=== PATIENT | male | born 1945 | race Caucasian/White ===

== ENCOUNTER 2017-04-10 06:11 | Inpatient (IN) | payer BC ==
[2017-04-08 13:08] LABS: Basophils # (auto) 0 uL; Basophils % (auto) 0.4 % (0.0-2.0); CONDITION Y; Eosinophils # (auto) 0.1 uL; Eosinophils % (auto) 1.9 % (0.0-7.0); Hematocrit 44.6 % (41.0-53.0); Hemoglobin 15.2 g/dL (13.5-17.5); Lymphocytes % (auto) 30.6 % (10.0-50.0); Mean Corpuscular Hemoglobin 30.9 pg (28.0-32.0); Mean Corpuscular Hgb Conc. 34.1 g/dL (32.0-36.0); Mean Corpuscular Volume 90.5 fL (80.0-100.0); Mean Platelet Volume 7.9 fL (7.4-10.4); Monocytes # (auto) 0.4 uL; Monocytes % (auto) 5.8 % (0.0-12.0); Neutrophils # (auto) 4.1 uL; Neutrophils % (auto) 61.3 % (37.0-80.0); Platelet Count (auto) 233 10^3/uL (140-450); White Blood Cell 6.6 10^3/uL (4.4-10.8)
[2017-04-08 13:16] LABS: Urine Bilirubin Negative (Negative); Urine Blood TRACE /uL (Negative); Urine Color Yellow (Yellow); Urine Glucose TRACE mg/dL (Normal); Urine Ketone Negative (Negative); Urine Nitrite POSITIVE (Negative); Urine RBC 39 /hpf (0 - 3); Urine Urobilinogen Normal (Negative); Urine WBC Clumps PRESENT /hpf (None Seen)
[2017-04-08 13:27] LABS: INR 0.97 (0.9-1.15); Partial Thromboplastin Time 27.2 sec (22.64-33.71); Prothrombin Time 10.6 sec (9.37-12.3)
[2017-04-08 13:28] LABS: BUN/Creatinine Ratio 27.7; Calcium 9.3 mg/dL (8.5-10.1); Potassium 4.1 mmol/L (3.5-5.1)
[~2017-04-10] VITALS: Ht 177.8 cm; Wt 85.7 kg
[~2017-04-10 06:11] MED LIST: METF-370 PO
[2017-04-10] MEDS ORDERED: BUPIVACAINE 0.25% INJ 50ML VIAL ONE (06:37)
[2017-04-10] MEDS ORDERED: LIDOCAINE W/ EPINEPHRINE 1 % INJ 30ML ONE (06:37)
[2017-04-10] MEDS ORDERED: ceFOXitin 2GM/100ML D5W 100 ML IV ONE (07:10)
[2017-04-10] MEDS ORDERED: MIDAZOLAM HCL 1MG/1ML-2 ML VIAL ONE (07:31)
[2017-04-10] MEDS ORDERED: fentaNYL CITRATE 100 MCG/2 ML VL ONE ×4 (07:31→11:33)
[2017-04-10] MEDS ORDERED: PROPOFOL 10 MG/ML 20 ML IV ONE (07:34)
[2017-04-10] MEDS ORDERED: ROCURONIUM 10MG/ML 10ML VIAL IV ONE ×2 (07:34→10:47)
[2017-04-10] MEDS ORDERED: ePHEDrine SULFATE 50 MG/ML AMP ONE (08:27)
[2017-04-10] MEDS ORDERED: InsuLIN REG 1unit/0.01ml Soln (100units/ml) ONE (10:28)
[2017-04-10] MEDS ORDERED: ONDANSETRON HCL 4 MG/2 ML VIAL IV ONE (10:30)
[2017-04-10] MEDS ORDERED: ACCU-CHEK COMFORT CURVE STRIP VI ONE (10:30)
[2017-04-10] MEDS ORDERED: NALOXONE HCL 0.4 MG/ML VIAL IV PRN (10:30)
[2017-04-10] MEDS ORDERED: fentaNYL CITRATE 100 MCG/2 ML VL IV PRN (10:30)
[2017-04-10] MEDS: SOD CHL 0.45% 1,000 ML IV SCH ×3 (10:41→18:41)
[2017-04-10] MEDS ORDERED: diphenhdrAMINE HCL 50 MG/1 ML VL IV PRN (10:45)
[2017-04-10] MEDS ORDERED: DEXTROSE (50%) 50ML SYRG IV PRN (10:45)
[2017-04-10] MEDS ORDERED: ACETAMINOPHEN/CODEINE#3 (300/30mg) TAB PO PRN (10:45)
[2017-04-10] MEDS ORDERED: ONDANSETRON HCL 4 MG/2 ML VIAL IV PRN (10:45)
[2017-04-10] MEDS ORDERED: ONDANSETRON HCL 4 MG/2 ML VIAL ONE (11:11)
[2017-04-10] MEDS ORDERED: METOCLOPRAMIDE HCL 5MG/ml INJ 2ml VIAL ONE (11:11)
[2017-04-10] MEDS ORDERED: GLYCOPYRROLATE 0.2 MG/ML 1ML VIAL ONE (11:11)
[2017-04-10] MEDS ORDERED: diphenhdrAMINE HCL 50 MG/1 ML VL ONE (11:11)
[2017-04-10] MEDS ORDERED: NEOSTIGMINE 1 MG/ML INJ (10mg/10ML VIAL) ONE (11:11)
[2017-04-10] MEDS: InsuLIN REG 1unit/0.01ml Soln (100units/ml) SC SCH ×2 (11:30→17:39)
[2017-04-10] MEDS: HYDROmorphone HCL 2 MG/ML VL IV PRN ×6 (12:05→23:20)
[2017-04-10] MEDS: ACCU-CHEK COMFORT CURVE STRIP VI SCH ×3 (15:28→21:15)
[2017-04-10] MEDS: CEFOXITIN SODIUM 1 GM in D5W 5% 50 ML IV SCH ×2 (15:51→22:26)
[2017-04-10] MEDS: metFORMIN HYDROCHLORIDE 500 MG TAB PO SCH (15:54)
[2017-04-10 15:58] VITALS: BP 150/84
[2017-04-10] MEDS ORDERED: GLIP-116 PO (16:33)
[2017-04-10 16:48] VITALS: BP 150/84
[2017-04-10 22:00] VITALS: BP 144/76
[2017-04-10] MEDS ORDERED: InsuLIN REG 1unit/0.01ml Soln (100units/ml) SC SCH (22:00)
[2017-04-11] MEDS: SOD CHL 0.45% 1,000 ML IV SCH ×2 (02:41→10:35)
[2017-04-11] MEDS: HYDROmorphone HCL 2 MG/ML VL IV PRN ×4 (03:51→12:46)
[2017-04-11 05:00] VITALS: BP 129/68
[2017-04-11 05:54] LABS: BUN/Creatinine Ratio 18.4; Calcium 7.9 mg/dL (8.5-10.1); Potassium 4.3 mmol/L (3.5-5.1)
[2017-04-11] MEDS: ACCU-CHEK COMFORT CURVE STRIP VI SCH ×2 (06:10→11:47)
[2017-04-11] MEDS: CEFOXITIN SODIUM 1 GM in D5W 5% 50 ML IV SCH (06:10)
[2017-04-11] MEDS: InsuLIN REG 1unit/0.01ml Soln (100units/ml) SC SCH ×2 (06:17→11:48)
[2017-04-11 09:00] VITALS: BP_SYST 126; BP_SYST 158; BP_DIAS 100; BP_DIAS 68
[2017-04-11] MEDS: metFORMIN HYDROCHLORIDE 500 MG TAB PO SCH (10:20)
[2017-04-11 12:57] VITALS: BP 146/77
== END 2017-04-11 15:37 | disposition home or self-care (01) | DRG 708 ==
LOC: SUR 06:11 → WEST WING 06:12
PROVIDERS: ADMIT Urology; ATTEND Urology
PROC: 07TC4ZZ Resection of Pelvis Lymphatic, Percutaneous Endoscopic Approach (ICD-10-PCS; 2017-04-10)
PROC: 0TQC4ZZ Repair Bladder Neck, Percutaneous Endoscopic Approach (ICD-10-PCS; 2017-04-10)
PROC: 8E0W4CZ Robotic Assisted Procedure of Trunk Region, Percutaneous Endoscopic Approach (ICD-10-PCS; 2017-04-10)
PROC: 0VT04ZZ Resection of Prostate, Percutaneous Endoscopic Approach (ICD-10-PCS; principal; 2017-04-10 07:32)
DX: C61 Malignant neoplasm of prostate (principal); E11.9 Type 2 diabetes mellitus without complications; M17.12 Unilateral primary osteoarthritis, left knee; Z85.820 Personal history of malignant melanoma of skin; Z79.899 Other long term (current) drug therapy; Z87.891 Personal history of nicotine dependence; Z90.49 Acquired absence of other specified parts of digestive tract
CPT/HCPCS: 53899; S2900; 36415; 80048; 81001; 82962; 83036; 85025; 85610; 85730; 86850; 86900; 86901; 87086; 87088; 87186; J0694; J1815; J2250; J2405; J2704; J3490; J7060

== ENCOUNTER 2020-12-31 13:54 | Inpatient (IN) | payer BC ==
[~2020-12-31] VITALS: Ht 170.2 cm; Wt 78.4 kg
[~2020-12-31 13:54] MED LIST changes: +GLIP10TA9 PO
[2020-12-31 14:39] LABS: Basophils # (auto) 0 10 ^3/uL (0-0.2); Basophils % (auto) 0.5 % (0.0-2.0); Eosinophils # (auto) 0 10 ^3/uL (0-0.8); Eosinophils % (auto) 0.3 % (0.0-7.0); Hematocrit 31.8 % (41.0-53.0); Hemoglobin 10.5 g/dL (13.5-17.5); Lymphocytes # (auto) 0.7 10 ^3/uL (0.4-5.4); Lymphocytes % (auto) 9.7 % (10.0-50.0); Mean Corpuscular Hemoglobin 28.2 pg (28.0-32.0); Mean Corpuscular Hgb Conc. 32.9 g/dL (32.0-36.0); Mean Corpuscular Volume 85.8 fL (80.0-100.0); Monocytes # (auto) 0.7 10 ^3/uL (0-1.3); Monocytes % (auto) 9.6 % (0.0-12.0); Neutrophils # (auto) 5.6 10 ^3/uL (1.6-8.6); Neutrophils % (auto) 79.9 % (37.0-80.0); Nucleated Red Blood Cells % 0.1 %; Platelet Count (auto) 438 10^3/uL (140-450); Red Blood Cells 3.71 10^6/uL (4.5-5.90); Red Cell Distribution Width 16.9 % (11.8-14.3)
[2020-12-31 14:56] LABS: Albumin 2.3 g/dL (3.4-5.0); Calcium 9.1 mg/dL (8.5-10.1); Potassium 3.7 mmol/L (3.5-5.1)
[2020-12-31 15:01] LABS: Bilirubin, Total 0.5 mg/dL (0.2-1.0)
[2020-12-31] MEDS ORDERED: SODIUM CHLORIDE 0.9% 500 ML IVB ONE ×2 (16:00→17:00)
[2020-12-31] MEDS ORDERED: SODIUM CHLORIDE 0.9% 1,000 ML IV ONE ×2 (16:00→17:00)
[2020-12-31] MEDS ORDERED: MORPHINE SULF INJ 2 MG/ML SYRINGE 1ML IV PRN (20:45)
[2020-12-31] MEDS ORDERED: ONDANSETRON HCL 4 MG/2 ML VIAL IV PRN (20:45)
[2020-12-31] MEDS ORDERED: TEMAZEPAM 15 MG CAP PO PRN (20:45)
[2020-12-31] MEDS ORDERED: ALBUTEROL SULF 2.5 MG/0.5ML(0.5%) NEB SOLN NEB PRN (20:45)
[2020-12-31] MEDS ORDERED: NITROGLYCERIN 0.4 MG SL TAB SL PRN (20:45)
[2020-12-31] MEDS ORDERED: ACETAMINOPHEN 325 MG TAB PO PRN (20:45)
[2020-12-31] MEDS ORDERED: DEXTROSE (50%) 50ML SYRG IV PRN (20:45)
[2020-12-31 23:00] VITALS: BP 131/105
[2021-01-01] MEDS: ACCU-CHEK COMFORT CURVE STRIP VI SCH ×5 (00:24→21:59)
[2021-01-01] MEDS: ATORVASTATIN 20 MG TAB PO SCH ×2 (00:25→21:58)
[2021-01-01] MEDS: InsuLIN REG 1unit/0.01ml Soln (100units/ml) SC SCH ×5 (00:25→22:00)
[2021-01-01] MEDS: FAMOTIDINE 20 MG TAB PO SCH ×3 (00:25→21:58)
[2021-01-01] MEDS ORDERED: ALPR0.25 PO (01:50)
[2021-01-01] MEDS ORDERED: FURO20TA3 PO (01:52)
[2021-01-01] MEDS ORDERED: BENA20TA14 PO (01:52)
[2021-01-01 04:55] VITALS: BP 121/79
[2021-01-01] MEDS ORDERED: PNEUMOCOCCAL VACC POLYS 25 MCG/0.5 ML VIAL IM ONE (06:45)
[2021-01-01 07:59] LABS: Basophils # (auto) 0 10 ^3/uL (0-0.2); Basophils % (auto) 0.6 % (0.0-2.0); Eosinophils # (auto) 0 10 ^3/uL (0-0.8); Eosinophils % (auto) 0.3 % (0.0-7.0); Hematocrit 29.7 % (41.0-53.0); Hemoglobin 9.9 g/dL (13.5-17.5); Lymphocytes # (auto) 0.8 10 ^3/uL (0.4-5.4); Lymphocytes % (auto) 10.8 % (10.0-50.0); Mean Corpuscular Hemoglobin 28.5 pg (28.0-32.0); Mean Corpuscular Hgb Conc. 33.2 g/dL (32.0-36.0); Mean Corpuscular Volume 85.9 fL (80.0-100.0); Monocytes # (auto) 0.7 10 ^3/uL (0-1.3); Monocytes % (auto) 9.6 % (0.0-12.0); Neutrophils # (auto) 6.1 10 ^3/uL (1.6-8.6); Neutrophils % (auto) 78.7 % (37.0-80.0); Platelet Count (auto) 446 10^3/uL (140-450); Red Blood Cells 3.46 10^6/uL (4.5-5.90); Red Cell Distribution Width 16.9 % (11.8-14.3); White Blood Cell 7.7 10^3/uL (4.4-10.8)
[2021-01-01 08:15] LABS: Albumin 2.2 g/dL (3.4-5.0); Potassium 3.5 mmol/L (3.5-5.1)
[2021-01-01 08:20] LABS: Bilirubin, Total 0.4 mg/dL (0.2-1.0); Total Protein 6.7 g/dL (6.4-8.2)
[2021-01-01 09:00] VITALS: BP 115/60
[2021-01-01] MEDS: ASPirin 81 mg TAB PO SCH (09:46)
[2021-01-01] MEDS: FUROSEMIDE 20 MG TAB PO SCH (09:49)
[2021-01-01] MEDS: CLOPIDOGREL BISULFATE 75 MG TAB PO SCH (09:50)
[2021-01-01] MEDS: ENOXAPARIN SOD 80 MG/0.8ML SYRINGE SC SCH ×2 (10:54→21:58)
[2021-01-01 11:11] VITALS: BP 118/62
[2021-01-01 12:50] LABS: Urine Bacteria FEW /hpf (None Seen); Urine Blood Negative /uL (Negative); Urine Mucus FEW (None Seen); Urine Specific Gravity 1.008 (1.001-1.035); Urine WBC 1 /hpf (0 - 3)
[2021-01-01 13:00] VITALS: BP 124/65
[2021-01-01 13:00] LABS: Alcohol, Urine < 3.0 mg/dL (0-10); Amphetamine Screen, Urine NEGATIVE (NEGATIVE); Barbiturate Scree,Urine NEGATIVE (NEGATIVE); Benzodiazephine Screen, Urine NEGATIVE (NEGATIVE); Cannabinoid Screen, Urine NEGATIVE (NEGATIVE); Cocaine Screen, Urine NEGATIVE (NEGATIVE); Opiate Scree,Urine NEGATIVE (NEGATIVE); Phencyclidine Screen, Urine NEGATIVE (NEGATIVE)
[2021-01-01] MEDS: LORazepam 2MG/ML-1ML VIAL IV ONE ×2 (13:00→13:12)
[2021-01-01] MEDS ORDERED: GLIM4TAB42 PO (14:46)
[2021-01-01] MEDS ORDERED: CLOP75TA70 PO (14:46)
[2021-01-01] MEDS ORDERED: PIO30T PO (14:46)
[2021-01-01 17:00] VITALS: BP 110/71
[2021-01-01 21:35] VITALS: BP 108/59
[2021-01-02 05:02] VITALS: BP 124/72
[2021-01-02 05:30] LABS: Basophils # (auto) 0 10 ^3/uL (0-0.2); Basophils % (auto) 0.5 % (0.0-2.0); Eosinophils # (auto) 0.1 10 ^3/uL (0-0.8); Eosinophils % (auto) 1.3 % (0.0-7.0); Hematocrit 28.2 % (41.0-53.0); Hemoglobin 9.4 g/dL (13.5-17.5); Lymphocytes # (auto) 0.6 10 ^3/uL (0.4-5.4); Lymphocytes % (auto) 11.2 % (10.0-50.0); Mean Corpuscular Hemoglobin 28.3 pg (28.0-32.0); Mean Corpuscular Hgb Conc. 33.4 g/dL (32.0-36.0); Mean Corpuscular Volume 84.6 fL (80.0-100.0); Monocytes # (auto) 0.4 10 ^3/uL (0-1.3); Monocytes % (auto) 8.8 % (0.0-12.0); Neutrophils % (auto) 78.2 % (37.0-80.0); Nucleated Red Blood Cells % 0.1 %; Platelet Count (auto) 415 10^3/uL (140-450); Red Blood Cells 3.33 10^6/uL (4.5-5.90); Red Cell Distribution Width 16.4 % (11.8-14.3); White Blood Cell 5.1 10^3/uL (4.4-10.8)
[2021-01-02] MEDS: ALPRAZolam 0.5 MG TAB PO PRN (05:31)
[2021-01-02 05:52] LABS: Albumin 1.9 g/dL (3.4-5.0); Calcium 8.6 mg/dL (8.5-10.1); Magnesium 1.8 mg/dL (1.6-2.6); Potassium 3.1 mmol/L (3.5-5.1)
[2021-01-02 05:57] LABS: Bilirubin, Total 0.4 mg/dL (0.2-1.0); Total Protein 5.8 g/dL (6.4-8.2)
[2021-01-02] MEDS: ACCU-CHEK COMFORT CURVE STRIP VI SCH ×4 (06:32→22:00)
[2021-01-02] MEDS: InsuLIN REG 1unit/0.01ml Soln (100units/ml) SC SCH ×4 (06:33→22:00)
[2021-01-02] MEDS ORDERED: POTASSIUM EFFERVESENT TAB 25 MEQ PO ONE (08:30)
[2021-01-02] MEDS ORDERED: MAGNESIUM OXIDE 400 MG TAB PO ONE (08:30)
[2021-01-02 09:15] VITALS: BP 102/80
[2021-01-02] MEDS: CLOPIDOGREL BISULFATE 75 MG TAB PO SCH (10:31)
[2021-01-02] MEDS: ASPirin 81 mg TAB PO SCH (10:31)
[2021-01-02] MEDS: FAMOTIDINE 20 MG TAB PO SCH ×2 (10:32→22:00)
[2021-01-02] MEDS: FUROSEMIDE 20 MG TAB PO SCH (10:32)
[2021-01-02] MEDS: ENOXAPARIN SOD 80 MG/0.8ML SYRINGE SC SCH (10:35)
[2021-01-02] MEDS ORDERED: LORazepam 2MG/ML-1ML VIAL IV PRN ×2 (12:00→19:45)
[2021-01-02 12:32] VITALS: BP 110/67
[2021-01-02 16:58] VITALS: BP 132/69
[2021-01-02 20:38] LABS: Cholesterol 138 mg/dL (< 200); HDL Cholesterol 43 mg/dL (40-59); LDL Cholesterol 71 mg/dL (< 100); Triglycerides 151 mg/dL (< 150)
[2021-01-02 20:42] LABS: Folate (Folic Acid) 12.22 ng/mL (5.38-24)
[2021-01-02 21:37] VITALS: BP 109/58
[2021-01-02] MEDS: ATORVASTATIN 20 MG TAB PO SCH (22:00)
[2021-01-03 05:17] VITALS: BP 117/69
[2021-01-03] MEDS: ACCU-CHEK COMFORT CURVE STRIP VI SCH ×2 (06:02→12:01)
[2021-01-03] MEDS: InsuLIN REG 1unit/0.01ml Soln (100units/ml) SC SCH ×3 (06:21→12:04)
[2021-01-03] MEDS: ALPRAZolam 0.5 MG TAB PO PRN ×2 (08:53→10:56)
[2021-01-03] MEDS: FAMOTIDINE 20 MG TAB PO SCH (10:54)
[2021-01-03] MEDS: CLOPIDOGREL BISULFATE 75 MG TAB PO SCH (10:54)
[2021-01-03] MEDS: FUROSEMIDE 20 MG TAB PO SCH (10:55)
[2021-01-03] MEDS ORDERED: GADOTERATE MEG 10 MMOL/20ml INJ (0.5MMOL/ml) IV ONE (11:57)
== END 2021-01-03 15:36 | disposition home health service (06) | DRG 280 ==
LOC: ER 13:54 → EDBD 13:54 → TELE 20:39 → TELE-WESTW 23:00
PROVIDERS: ADMIT Nurse Practitioner; ATTEND Internal Medicine
DX: I21.4 Non-ST elevation (NSTEMI) myocardial infarction (principal); G93.41 Metabolic encephalopathy; C79.51 Secondary malignant neoplasm of bone; E87.2 Acidosis; Z20.822 Contact with and (suspected) exposure to COVID-19; D63.8 Anemia in other chronic diseases classified elsewhere; R62.7 Adult failure to thrive; F01.50 Vascular dementia, unspecified severity, without behavioral disturbance, psychotic disturbance, mood disturbance, and anxiety; E87.6 Hypokalemia; E83.42 Hypomagnesemia; Z53.20 Procedure and treatment not carried out because of patient's decision for unspecified reasons; I11.9 Hypertensive heart disease without heart failure; Z82.62 Family history of osteoporosis; Z85.46 Personal history of malignant neoplasm of prostate; Z28.29 Immunization not carried out because of patient decision for other reason; I69.311 Memory deficit following cerebral infarction; Z79.899 Other long term (current) drug therapy; Z80.42 Family history of malignant neoplasm of prostate; Z81.1 Family history of alcohol abuse and dependence; Z82.61 Family history of arthritis; Z68.26 Body mass index [BMI] 26.0-26.9, adult; Z79.4 Long term (current) use of insulin; Z90.79 Acquired absence of other genital organ(s); Z92.3 Personal history of irradiation; Z79.02 Long term (current) use of antithrombotics/antiplatelets; Z85.3 Personal history of malignant neoplasm of breast; E11.65 Type 2 diabetes mellitus with hyperglycemia; E88.09 Other disorders of plasma-protein metabolism, not elsewhere classified
CPT/HCPCS: 36415; 70450; 71045; 74176; 78306; 80053; 80061; 80307; 81001; 82607; 82746; 82962; 83690; 83735; 83880; 84154; 84443; 84484; 85025; 87426; 93005; 93306; 93886; 96361; 96374; G0378; J1815